=== PATIENT | female | born 1950 | race Native Hawaiian/Other Pacific Islander ===

== ENCOUNTER 2017-01-19 06:21 | Day surgery (SDC) | payer MEDICARE ==
[2017-01-19] MEDS ORDERED: Propofol 10 mg/ml Inj (20 ML) ONE (07:43)
--- NOTE | 2017-01-19 08:19 | CP.SDSHP ---
Same Day Surgery H & P - History Proposed Procedure: colonoscopy Pre-Op Diagnosis: screen - Previous Medical/Surgical History Cardiac: Hypertension Pulmonary: Asthma Endocrine/Metabolic: Diabetes - Allergies Allergies: Allergies aspirin Allergy (Verified 01/19/17 06:53) SHORTNESS OF BREATH - Physical Exam Vital Signs: Vital Signs 01/19/17 06:45 Temperature 97 F L Pulse Rate 76 Respiratory 19 Rate Blood Pressure 168/80 H O2 Sat by Pulse 98 Oximetry Mental Status: Alert & Oriented x3 Neuro: WNL Heart: WNL Lungs: WNL GI: WNL - {Optional Preform as Required} Abdomen: WNL - Impression Impression: screening Pt. Evaluated Today:Candidate for Anesthesia & Procedure: Yes - Date & Time Date: 01/19/17 Time: 08:05 Short Stay Discharge - Short Stay Discharge Admitting Diagnosis/Reason for Visit: ENCOUNTER FOR SCREENING FOR MALIGNANT NEOPLASM OF Disposition: HOME/ ROUTINE
[2017-01-19 09:43] VITALS: BP 133/67; PULSE 64; RESP 16; TEMP 97; O2SAT 98
== END 2017-01-19 09:38 | disposition home or self-care (01) ==
LOC: C.ENDO 06:21
PROVIDERS: ATTEND Internal Medicine Gastroenterology
DX: Z12.11 Encounter for screening for malignant neoplasm of colon (principal); K63.5 Polyp of colon; E11.9 Type 2 diabetes mellitus without complications; I10 Essential (primary) hypertension
CPT/HCPCS: 45380; 82948; 88305; J2704

== ENCOUNTER 2017-11-12 10:51 | Emergency (ER) | payer MEDICARE ==
[2017-11-12 11:02] VITALS: BP 156/84; PULSE 77; RESP 18; TEMP 97.7; O2SAT 98
--- NOTE | 2017-11-12 12:10 | C.PDOC ---
History Of Present Illness 67-year-old female, presents to the emergency department with complaints of puritic rash to neck, arms and legs. Patient notes that three months ago, she had similar symptoms which resolved. She denies any throat swelling/discomfort, known allergens, shortness of breath, fever, nausea/vomiting, tongue swelling or any other associated symptoms. No other complaints at this time. Time Seen by Provider: 11/12/17 11:07 Chief Complaint (Nursing): Allergic Reaction History Per: Patient History/Exam Limitations: no limitations Current Symptoms Are (Timing): Still Present Past Medical History Reviewed: Historical Data, Nursing Documentation, Vital Signs Vital Signs: Last Vital Signs Temp 97.7 F 11/12/17 11:00 Pulse 77 11/12/17 11:00 Resp 18 11/12/17 11:00 BP 156/84 H 11/12/17 11:00 Pulse Ox 98 11/12/17 17:39 - Medical History PMH: Asthma, HTN, Hypercholesterolemia Family History: States: No Known Family Hx - Social History Hx Tobacco Use: No Hx Alcohol Use: No Hx Substance Use: No - Immunization History Hx Tetanus Toxoid Vaccination: No Hx Influenza Vaccination: No Hx Pneumococcal Vaccination: No Review Of Systems Constitutional: Negative for: Fever, Chills ENT: Negative for: Nose Discharge, Mouth Swelling, Throat Pain, Throat Swelling Respiratory: Negative for: Shortness of Breath Skin: Positive for: Rash Physical Exam - Physical Exam Appears: Non-toxic, No Acute Distress Skin: Warm, Dry, Rash (diffuse hives, arms, legs and neck) Head: Atraumatic, Normacephalic Eye(s): bilateral: Normal Inspection Nose: Normal Oral Mucosa: Moist Lips: Normal Appearing Neck: Normal ROM Chest: Symmetrical Cardiovascular: Rhythm Regular, No Murmur Respiratory: Normal Breath Sounds, No Accessory Muscle Use Extremity: Normal ROM, No Deformity Neurological/Psych: Oriented x3, Normal Speech ED Course And Treatment O2 Sat by Pulse Oximetry: 98 (RA) Pulse Ox Interpretation: Normal Disposition - Disposition Referrals: Nick Inman MD [Staff Provider] - Disposition: HOME/ ROUTINE Disposition Time: 12:07 Condition: STABLE Additional Instructions: Follow up with your PMD within 1-2 days. Return to ED if feel worse. Prescriptions: DiphenhydrAMINE [Benadryl] 25 mg PO .Q4-6 H #30 cap Famotidine [Pepcid] 20 mg PO BID #20 tab predniSONE [predniSONE Tab] 2 tab PO DAILY 3 Days #6 tab Forms: [facility] (Honduran) - Clinical Impression Clinical Impression: Allergic urticaria - Scribe Statement The provider has reviewed the documentation as recorded by the Scribe (Phyllis Jauregui) All medical record entries made by the Scribe were at my direction and personally dictated by me. I have reviewed the chart and agree that the record accurately reflects my personal performance of the history, physical exam, medical decision making, and the department course for this patient. I have also personally directed, reviewed, and agree with the discharge instructions and disposition.
== END 2017-11-12 12:14 | disposition home or self-care (01) ==
LOC: C.ER 10:51
DX: L50.0 Allergic urticaria (principal)